=== PATIENT | male | born 1985 | race Caucasian/White ===

== ENCOUNTER 2021-07-14 17:43 | Emergency (ER) | payer BC ==
--- OUTSIDE RECORDS SUMMARY | 2021-07-14 17:46 | XMS REPORT | Continuity of Care Document ---
:1985 Author Organization [facility] t Address [address] [place] [address] Care Team Providers Name Role Phone Provider, Urgent Care Attending Clinician Unavailable Nicki Chowdhury MD Attending Clinician Nicki CHOWDHURY Attending Clinician Unavailable Problems Condition Condition Condition Status Onset Resolution Last Treating Co mments Source Name Details Category Date Date Treatment Clinician Date No known No known Disease Unive rs active active ity of problems problems [facility] Allergies, Adverse Reactions, Alerts Allergy Allergy Status Severity Reaction(s) Onset Inactive Treating Comm ents Source Name Type Date Date Clinician NO KNOWN Drug Active Univers ALLERGIE Class ity of S [facility] Social History Social Habit Start Date Stop Date Quantity Comments Source Exposure to Not sure [facility] SARS-CoV-2 (event) Medica l Branch Sex Assigned At [birth year] [facility] 00:00:00 00:00:00 [facility] Er Smoking Status Start Date Stop Date Source Unknown if ever smoked [facility] Medications Ordered Filled Start Stop Current Ordering Indication Dosage Frequency Signature Comments Components Source Medication Medication Date Date Medication? Clinician (SIG) Name Name hydrocortis Yes [id number] 25mg Insert 1 Univers one 7-12 Suppositor ity of (AN[facility]OL-[facility]) 00:00: y into [facility] 25 mg 00 rectum 2 Medical suppository (two) Branch times daily. Benzocaine Yes [id number] Apply to Univers 20 % Oint 7-12 area(s) 4 ity o f 00:00: (four) [place] 00 times Medical daily as Branch needed for Pain (scale 1-3) or Pain (scale 4-6). Benzocaine Yes [id number] Apply to Univers 10 % Oint 7-12 area(s) 4 ity o f 00:00: (four) [place] 00 times Medical daily as Branch needed for Pain (scale 1-3). hydrocortis Yes [id number] 25mg Insert 1 Univers one 12 Suppositor ity of ([facility] 25 [place] 00 rectum 2 Medical suppository (two) Branch times daily. Benzocaine Yes [id number] Apply to Univers 20 % Oint 01-21 area(s) 4 ity o f 00:00: (four) [place] 00 times Medical daily as Branch needed for Pain (scale 1-3) or Pain (scale 4-6). Vital Signs Vital Name Observation Time Observation Value Comments Source Systolic blood 2021-01-21 21:24:00 144 mm[Hg] Univer sity [facility] Diastolic blood 2021-01-21 21:24:00 97 mm[Hg] [facility] Heart rate 2021-01-21 21:23:00 86 /min [facility] Body temperature 2021-01-21 21:23:00 36.61 [facility] Respiratory rate 2021-01-21 21:23:00 17 /min [facility] Body height 2021-01-21 21:23:00 176.5 cm [facility] Body weight 2021-01-21 21:23:00 86.183 kg [facility] BMI 2021-01-21 21:23:00 27.66 kg/m2 [facility] Oxygen saturation in 2021-01-21 21:23:00 99 /min [facility] Arterial blood by [facility] Pulse oximetry Branch Procedures This patient has no known procedures. Encounters Start End Encounter Admission Attending Care Care Encounter Source Date/Time Date/Time Type Type Clinicians Facility Department ID 2021-01-21 2021-01-21 Urgent Provider, [facility] [id number] Univers 15:38:25 17:34:48 Kendy Chowdhury [facility] [id number] ity of [place] [id number] [place] as Professio [phone] Ga dical nal [address] 2021-01-21 2021-01-21 Outpatient R SHARITA CHOWDHURYMB [facility] [id number] Univers 15:40:00 15:40:00 MERNA ity of [facility] 2021-01-21 2021-01-21 Telephone Provider, [facility] [id number] [facility] 00:00:00 00:00:00 [facility] [id number] ity of [facility] [id number] [place] [phone] [address] Office [address] One Results This patient has no known results.
--- NOTE | 2021-07-14 21:48 | ER ---
Nurse's Notes [facility] Name: Mikal Gallegos Age: 35 yrs Sex: Male : 1985 Arrival Date: 07/14/2021 Time: 17:47 Bed Treatment Private MD: Diagnosis: Acute pharyngitis due to other specified organism Presentation: 07/14 20:48 Chief complaint: Patient states: he is positive for Covid and is having so much throat bb pain he cannot tolerate it unable to sleep taking OTC analgesics with no relief. Coronavirus screen: Client reports previous positive COVID test result. Ebola Screen: No symptoms or risks identified at this time. Initial Sepsis Screen: Does the patient meet any 2 criteria? No. Patient's initial sepsis screen is negative. Does the patient have a suspected source of infection? No. Patient's initial sepsis screen is negative. Risk Assessment: Do you want to hurt yourself or someone else? Patient reports no desire to harm self or others. Onset of symptoms was July 11, 2020. 20:48 Method Of Arrival: Ambulatory bb 20:48 Acuity: TIMO 5 bb Triage Assessment: 20:50 General: Appears in no apparent distress. Behavior is calm, cooperative. Pain: bb Complains of pain in throat Pain currently is 9 out of 10 on a pain scale. EENT: Throat is reddened Reports pain when swallowing. Neuro: Level of Consciousness is awake, alert, obeys commands, Oriented to person, place, time, situation. Cardiovascular: Capillary refill < 3 seconds Patient's skin is warm and dry. Respiratory: Respiratory effort is even, unlabored, Respiratory pattern is regular. GI: No signs and/or symptoms were reported involving the gastrointestinal system. Derm: Skin is pink, warm \T\ dry. Musculoskeletal: Circulation, motion, and sensation intact. Historical: - Allergies: 20:50 No Known Allergies; bb - Home Meds: 20:50 None [Active]; bb - PMHx: 20:50 None; bb - PSHx: 20:50 Tonsillectomy; hand surgery; hernia; bb - Immunization history:: Adult Immunizations up to date, Client reports having NOT received the Covid vaccine. - Social history:: Smoking status: Patient denies any tobacco usage or history of. Screenin:00 Abuse screen: Denies threats or abuse. Nutritional screening: No deficits noted. bb Tuberculosis screening: No symptoms or risk factors identified. Fall Risk None identified. Assessment: 21:00 Reassessment: No changes from previously documented assessment. Patient is alert, bb oriented x 3, equal unlabored respirations, skin warm/dry/pink. 22:43 Reassessment: Patient is alert, oriented x 3, equal unlabored respirations, skin bb warm/dry/pink. pt verbalized understanding of and agrees to plan of care discharge instructions given pt ambulated with steady gait to exit. Vital Signs: 20:48 BP 134 / 94; Pulse 100; Resp 18 S; Temp 98.2(O); Pulse Ox 99% on R/A; Weight 86.18 kg bb (R); Height 5 ft. 9 in. (175.26 cm) (R); Pain 9/10; 22:07 BP 146 / 79; Pulse 84; Resp 16; Temp 98.2; Pulse Ox 100% ; lt3 20:48 Body Mass Index 28.06 (86.18 kg, 175.26 cm) bb ED Course: 17:47 Patient arrived in ED. ds1 20:50 Triage completed. bb 20:50 Arm band placed on. bb 21:00 Patient has correct armband on for positive identification. bb 21:00 No provider procedures requiring assistance completed. Patient did not have IV access bb during this emergency room visit. 21:24 Ivan Nick PA is PHCP. jr8 21:24 Deni Aguilar MD is Attending Physician. jr8 22:03 Callie Cameron RN is Primary Nurse. bb Administered Medications: 22:41 Drug: Decadron (dexamethasone) 10 mg Route: IM; Site: right gluteus; jr8 22:42 Follow up: Response: Medication administered at discharge. jr8 Outcome: 21:47 Discharge ordered by . jr8 22:44 Discharged to home ambulatory. bb 22:44 Condition: stable 22:44 Discharge instructions given to patient, Instructed on discharge instructions, follow up and referral plans. medication usage, Demonstrated understanding of instructions, follow-up care, medications, Prescriptions given X 1. 22:44 Patient left the ED. bb Signatures: Mary Panda ds1 Callie Cameron RN RN bb Ivan Nick PA PA jr8 Lawler, Dayanara lt3
--- NOTE | 2021-07-14 21:48 | EDPHYS ---
Physician Documentation [facility] Name: Mikal Gallegos Age: 35 yrs Sex: Male : 1985 Arrival Date: 07/14/2021 Time: 17:47 Bed Treatment Private MD: ED Physician Deni Aguilar HPI: 07/14 21:48 This 35 yrs old Male presents to ER via Ambulatory with complaints of Covid Positive, jr8 Difficulty Swallowing. 21:48 This is a 35-year-old male patient that presented to the emergency room with complaints jr8 of sore throat secondary to Covid. Patient stated that he has had difficulty swallowing secondary to the pain. Was seen at another facility and was just told to treat symptomatically with Tylenol and Motrin is not helping at this time. Denies any other symptoms at this time.. Historical: - Allergies: 20:50 No Known Allergies; bb - Home Meds: 20:50 None [Active]; bb - PMHx: 20:50 None; bb - PSHx: 20:50 Tonsillectomy; hand surgery; hernia; bb - Immunization history:: Adult Immunizations up to date, Client reports having NOT received the Covid vaccine. - Social history:: Smoking status: Patient denies any tobacco usage or history of. ROS: 21:48 Eyes: Negative for injury, pain, redness, and discharge, Neck: Negative for injury, jr8 pain, and swelling, Cardiovascular: Negative for chest pain, palpitations, and edema, Respiratory: Negative for shortness of breath, cough, wheezing, and pleuritic chest pain, Abdomen/GI: Negative for abdominal pain, nausea, vomiting, diarrhea, and constipation, Back: Negative for injury and pain, MS/Extremity: Negative for injury and deformity, Skin: Negative for injury, rash, and discoloration, Neuro: Negative for headache, weakness, numbness, tingling, and seizure. 21:48 ENT: Positive for sore throat. Exam: 21:48 Constitutional: This is a well developed, well nourished patient who is awake, alert, jr8 and in no acute distress. Eyes: Pupils equal round and reactive to light, extra-ocular motions intact. Lids and lashes normal. Conjunctiva and sclera are non-icteric and not injected. Cornea within normal limits. Periorbital areas with no swelling, redness, or edema. Cardiovascular: Regular rate and rhythm with a normal S1 and S2. No gallops, murmurs, or rubs. Normal PMI, no JVD. No pulse deficits. Respiratory: Lungs have equal breath sounds bilaterally, clear to auscultation and percussion. No rales, rhonchi or wheezes noted. No increased work of breathing, no retractions or nasal flaring. Abdomen/GI: Soft, non-tender, with normal bowel sounds. No distension or tympany. No guarding or rebound. No evidence of tenderness throughout. Skin: Warm, dry with normal turgor. Normal color with no rashes, no lesions, and no evidence of cellulitis. MS/ Extremity: Pulses equal, no cyanosis. Neurovascular intact. Full, normal range of motion. Neuro: Awake and alert, GCS 15, oriented to person, place, time, and situation. Cranial nerves II-XII grossly intact. Motor strength 5/5 in all extremities. Sensory grossly intact. 21:48 ENT: Exam is negative for earache, ear discharge, TM abnormalities, nasal discharge, Mouth: Lips: moist, Oral mucosa: pink and intact, moist, Gums: pink, Tongue: is moist, Posterior pharynx: Airway: patent, Uvula: midline, non-edematous, no erythema, swelling, is not appreciated, erythema, that is moderate. Vital Signs: 20:48 BP 134 / 94; Pulse 100; Resp 18 S; Temp 98.2(O); Pulse Ox 99% on R/A; Weight 86.18 kg bb (R); Height 5 ft. 9 in. (175.26 cm) (R); Pain 9/10; 22:07 BP 146 / 79; Pulse 84; Resp 16; Temp 98.2; Pulse Ox 100% ; lt3 20:48 Body Mass Index 28.06 (86.18 kg, 175.26 cm) bb MDM: 21:24 Patient medically screened. 8 21:46 Data reviewed: vital signs, nurses notes, and as a result, I will discharge patient. jr8 Data interpreted: Pulse oximetry: on room air is 99 %. Interpretation: normal. Counseling: I had a detailed discussion with the patient and/or guardian regarding: the historical points, exam findings, and any diagnostic results supporting the discharge/admit diagnosis, the need for outpatient follow up, a family practitioner, to return to the emergency department if symptoms worsen or persist or if there are any questions or concerns that arise at home. Administered Medications: 22:41 Drug: Decadron (dexamethasone) 10 mg Route: IM; Site: right gluteus; jr8 22:42 Follow up: Response: Medication administered at discharge. jr8 Disposition: 07/15 04:03 Co-signature as Attending Physician, Deni Aguilar MD. [email or web address] Disposition Summary: 07/14/21 21:47 Discharge Ordered Location: Home jr8 Problem: new jr8 Symptoms: have improved jr8 Condition: Stable jr8 Diagnosis - Acute pharyngitis due to other specified organism jr8 Followup: jr8 - With: Private Physician - When: 2 - 3 days - Reason: Recheck today's complaints, Continuance of care, Re-evaluation by your physician Discharge Instructions: - Discharge Summary Sheet jr8 - Pharyngitis jr8 Forms: - Medication Reconciliation Form jr8 - Thank You Letter jr8 - Antibiotic Education jr8 - Prescription Opioid Use jr8 Prescriptions: - Prednisone 20 mg Oral Tablet - take 1 tablet by ORAL route once daily for 5 days; 5 tablet; Refills: 0, jr8 Product Selection Permitted - Tessalon Perles 100 mg Oral Capsule - take 1 capsule by ORAL route every 8 hours As needed; 15 capsule; Refills: 0, jr8 Product Selection Permitted Signatures: Callie Cameron, RN RN Ivan Amaral PA PA jr8 Deni Aguilar MD MD [email or web address]
[2021-07-14] MEDS ORDERED: dexAMETHasone 10 MG/ML VIAL ONE (22:06)
[2021-07-14 22:49] VITALS: TEMP 98.2
[2021-07-14 22:50] VITALS: BP 146/79; O2SAT 100
== END 2021-07-14 22:44 | disposition home or self-care (01) ==
LOC: ER 17:43
DX: J02.8 Acute pharyngitis due to other specified organisms (principal); U07.1 COVID-19
CPT/HCPCS: 96372; 99283; J1100